=== PATIENT | male | born 1955 | race Hispanic/Latino ===

== ENCOUNTER 2018-05-12 06:19 | Day surgery (SDC) | payer OTHER, SELFPAY ==
[2018-04-23 12:50] VITALS: BMI 33.3
[2018-04-23 14:00] VITALS: BMI 33.3
[2018-05-12] VITALS (13 sets, daily range): BP systolic 92–153; BP diastolic 31–98; PULSE 40–76; RESP 15–18; TEMP 35.8–36.9; O2SAT 93–98; BMI 33.3
--- NOTE | 2018-05-12 06:00 | DI.RAD.S_ITS ---
PROCEDURE: XR KNEE RT 1TO2V INDICATIONS: prosthesis placement TECHNIQUE: 2 view(s) of the knee acquired. COMPARISON: None. FINDINGS: Bones: Patient is status post knee joint arthroplasty. Hardware components are in expected positions. Visualized bony structures are intact. Soft tissues: Overlying postoperative changes are noted. IMPRESSION: Post right total knee arthroplasty changes with anatomic right knee alignment. Dictated by: Adama Dee M.D. on 05/12/2018 at 11:36 Approved by: Adama Dee M.D. on 05/12/2018 at 11:37
[2018-05-12] MEDS: LACTATED RINGERS 1,000 ML 42 ML IV (07:10)
[2018-05-12] MEDS: PREGABALIN 75 MG CAPSULE PO (07:13)
[2018-05-12] MEDS: ACETAMINOPHEN 325 MG TABLET 975 MG PO ×3 (07:13→20:48)
[2018-05-12] MEDS: CELECOXIB 200 MG CAPSULE PO (07:14)
[2018-05-12] MEDS: MIDAZOLAM 2 MG/2 ML VIAL IV (07:43)
[2018-05-12] MEDS: fentaNYL 100 MCG/2 ML INJ 50 MCG IV (07:43)
--- NOTE | 2018-05-12 07:44 | PM.PREOP ---
Pre-operative Note Interval Note Pre-op Check: Yes History & Physical Reviewed by Physician and Yes Exam Performed Changes: No
[2018-05-12] MEDS: CEFAZOLIN VIAL 3 GM in SODIUM CHLORIDE 0.9% 100 ML 200 ML IV (08:00)
--- NOTE | 2018-05-12 08:41 | SUR.OPER ---
Supine on padded OR bed. Pillow under head, arms secured on padded armboards <90 degree abduction. Safety belt across torso. Non-operative leg secured with tape over blanket over lower leg. Operative leg secured in [place].
[2018-05-12] MEDS: BUPIVACAINE 0.25% W/ EPI VIAL 50 ML INJ (08:48)
[2018-05-12] MEDS: BUPIVACAINE LIPOSOME 266 MG/20 ML VIAL INJ (08:48)
[2018-05-12] MEDS: MORPHINE 4 MG/ML INJ INJ (08:51)
[2018-05-12] MEDS: TRANEXAMIC ACID 1,000 MG VIAL 1000 MG INJ ×2 (08:53→09:52)
--- NOTE | 2018-05-12 10:10 | PM.OP.1 ---
Operative Date/Time/Diagnoses Date of procedure: 05/12/18 Time of procedure: 10:10 Pre-op diagnosis: Right knee osteoarthritis Post-op diagnosis: same Procedure & Clinicians Surgeon: Jakub Gonzalez Director Case: Lilian Storey Click Yes if Unassisted: No Anesthesia Type: Spinal, Sedation, Peripheral nerve block and Local Operative Notes Findings: Severe medial and moderate patellofemoral osteoarthritis with relative preservation of the lateral compartment. Closure Type: primary Specimen(s): none sent Implants & Drains: Implants used in this procedure were manufactured by the [employer] and included the BCS II Journey total knee replacement with a size 9 right Oxinium femur, size 8 non porous right tibia, a 10 mm cross-linked polyethylene BCS II insert and a 35 mm aris II oval patella. Applied: implant(s) Estimated Blood Loss (mL): 50 Blood products transfused: none Tourniquet time (min): 59 Procedure in detail: The patient was seen in the pre-operative area, where the patient identified the right knee as the operative site and this was marked with my initials. The patient received pre-operative antibiotics, and was taken to the operating room and placed on the operative table in the supine position. After satisfactory anesthesia, a silver wrapper out was performed. The right leg was encircled with a tourniquet about the proximal thigh, and the leg was prepared from the toes to the tourniquet with ChloroPrep in the usual fashion and draped through sterile drapes. The leg was elevated and exsanguinated with Eschmark bandage and the tourniquet inflated to 250 mmHg pressure. The knee was approached through an approximately 18 cm incision centered over the patella and carried into the knee through a medial parapatellar arthrotomy. The anterior osteophytes and soft tissues were removed. The rotational landmarks of [place]'s line and the transepicondylar axis were marked on the femur with electrocautery, and intramedullary guide holes for the femur and tibia were created. The distal femoral cut was made in 6 degrees of valgus using the intramedullary guide at the primary cut setting. The size of the femur was measured. It was evident it would be a size 9, the largest size, and this requires an additional 2 mm cut which was performed. The proximal tibial cut was then made using the intramedullary guide, taking 9 mm of bone off the less involved side. The extension gap was checked and the rotation of the femoral component confirmed with the gap balancing system. The anterior, posterior and chamfer cuts were then made. The posterior osteophytes and soft tissues were then removed. The posterior capsule was injected with part of a mixture of 50 ml 0.25% Marcaine mixed with 20 ml Exparel and 4 mg of morphine for post-operative pain control. The remainder of this mixture was injected into the capsule and subcutaneous tissues during cement curing. The tibia was prepared with the rotation set by an extra medullary guide. Trial tibial and femoral components were then placed and the intercondylar notch cut through the femoral trial. Range of motion was 0-135 degrees, with good stability throughout the range. The patella was then cut to accommodate the patellar prosthetic. There was no need for a lateral release. The trials were then removed, and the femoral hole plugged with a bone plug. The bone was prepared with pulsatile lavage, and dried with a sponge. Cement was applied and the final prosthetics placed. Excess cement was removed during and after cement curing. After confirming there was no extruded cement posteriorly, the final tibial insert was placed. The knee was copiously irrigated and the tourniquet deflated. Hemostasis was obtained. The capsule was closed with interrupted # 2 polyester suture. The subcutaneous layer was closed with 3-0 Vicryl, and the skin with a running 3-0 V-Lock suture and SteriStrips. An Aquacel Ag dressing was applied and the patient was taken to recovery having tolerated the procedure well. Complications: none Condition: stable Disposition: PACU Plan for aftercare: The patient will be maintained on a standard total knee replacement protocol with weight bearing as tolerated. The patient will receive aspirin and sequential compression devices for DVT prophylaxis. The patient will be discharged home when safe for the home environment.
[2018-05-12] MEDS: OXYCODONE IR 10 MG TABLET PO (11:44)
[2018-05-12] MEDS: LACTATED RINGERS 1,000 ML 125 ML IV ×2 (11:45→20:45)
[2018-05-12] MEDS: HYDROMORPHONE 0.5 MG INJ IV (12:50)
--- NOTE | 2018-05-12 13:49 | PC.NURSE ---
Addendum entered by Faye Muro R.N. 05/12/18 14:46: pt up ambulated with PT c/o of feeling dizzy and lightheaded, sitting in chair b/p 92/34 p 40, after sitting for a few reports its getting better 113/78 p 44, is not sitting in chair at bedside. Original Note: day shift pt arrived to floor via bed from pacu @ 10:45, right knee has aqucel dressing with marky wrap, pt is able to wiggle toes and feel touch, denies pain at this time, is A&O able to communicate needs, oxygen 94-99% RA, 11:30- pt reporting pain increaseding to 5-6/10 and very uncomfortably 10mg oxycodone given, repositioned in bed and more ice packs applied. Pt continues to c/o pain HR in mid 40's waiting at this time to administer iv med Pt aware of plan to allow PO meds to kick in. 12:45 pt continues to c/o pain 7/10 clenching wrists and appears very uncomforable, apical HR 49, b/p 142/96. 0.5mg IV dilaudid given pt was able to fall asleep and rest. 1335- pt reports pain is 2/10 and tolerable at this time. Family at bedside.
[2018-05-12] MEDS: OXYCODONE IR 5 MG TABLET PO ×3 (16:16→22:51)
--- NOTE | 2018-05-12 16:26 | PT.IIE ---
Current Diagnoses Bilateral primary osteoarthritis of knee (05/12/18) Surgery Performed Operation Date: 05/12/18 07:45 Actual Procedures p Total Knee Arthroplasty(Right) - Jakub Gonzalez MD Surgical History (Last Updated 04/23/18 @ 14:33 by Carol Pete, RN) History of colon resection (Acute ~08/2008) History of colonoscopy with polypectomy (Acute ~10/2015) History of varicose vein ligation (Acute) Medical History (Last Updated 04/23/18 @ 14:33 by Carol Pete, RN) Bilateral primary osteoarthritis of knee (Acute) Bursitis of left hip (Acute ~2002) Closed head injury (Acute ~07/08/06) Constipation (Acute) Headache (Acute) Hyperlipidemia (Acute) Hypertension (Acute) Impaired glucose tolerance (Acute) Melanoma (Acute ~2005) Prostate cancer (Acute ~03/2017) Rotator cuff syndrome of right shoulder (Acute ~05/2007) Physical Therapy Inpatient Evaluation/Re-Eval M1 PT/OT-IP Prior Functional Status Start: 05/12/18 15:50 Freq: NEEDED Status: Active Protocol: Document 05/12/18 14:00 (Rec: 05/12/18 16:23 [id number]) Medical Review Prior Functional Status Medical History Reviewed Yes Diet/Fluid Consistency Regular Communication no deficits noted Mobility and Gait independent ambulator at home and community without AD Activities of Daily Living and IADL's independent ambulator at home and community without AD Prior Functional Level (Other details) pt walks 5-6 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 Social History Household Members spouse Living Arrangements House Number of Floors (Floors) One Floor Number of Stairs To Enter/Railing? 2 FRANCIS with handrails Home Environment Standard Height Toilet Walk in Shower Tub/Shower Employment Status Retired Additional Social History Comment Pt just retired last Saturday. 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 Pt has never used any assistive device but he had pre-op PT at [facility] and expects to go there for post op outpatient PT. Pt lives with his Chloe who is able to be his CG as needed . Pt's daughter Em is also able to be his CG as needed since she lives close by. M2 PT-IP Current Condition Start: 05/12/18 15:50 Freq: NEEDED Status: Active Protocol: Document 05/12/18 14:00 HH (Rec: 05/12/18 16:23 [id number]) Physical Therapy Current Condition Current Condition Evaluation Date 05/12/18 Treatment Diagnosis R TKA Onset Date 05/12/18 Weight Bearing Status Weight Bearing Status Weight Bear as Tolerated M3 PT-IP Subjective Start: 05/12/18 15:50 Freq: NEEDED Status: Active Protocol: Document 05/12/18 14:00 HH (Rec: 05/12/18 16:23 [id number]) Subjective Physical Therapy Visit Type Type Initial Evaluation Visit Start Time 14:00 Visit Stop Time 14:45 Total Visit Minutes 45 Notes Pt was seen with his Chloe and daughter Em at bedside. Number of STENOTYPIST Visits 0 Physical Therapy Visit Comments Patient Comments Pt reports his pain has gone down to 2/10 upon assessment compared to early this morning 8/10. I want to get out of bed now cause i feel pretty good. Patient Goals To be d/c to home and receive outpatient PT at [facility] to be able to amb to bathroom for toileting with mod I Therapy Pain Assessment Pain When Pain Assessed During Mobility Pain Present Pain Present Pain Reported Location Right Leg Intensity 3 Scale Used Numeric (1 - 10) Description Acute Pain Management Techniques Apply Cold M4 PT-IP Mobility and Gait Start: 05/12/18 15:50 Freq: NEEDED Status: Active Protocol: Document 05/12/18 14:00 HH (Rec: 05/12/18 16:23 [id number]) PT-Bed Mobility Assessment Supine to Sit Supine to Sit Standby Assistance Sit to Supine Sit to Supine Standby Assistance Scooting Scooting to Edge of Bed Standby Assistance Scooting Up and Down in Bed Standby Assistance PT-Transfer Assessment Sit to and From Stand Sit to and from Stand Standby Assistance Use of Upper Extremities Equipment Transfer Assistive Device Bed Rail Gait Belt Transfers Transfer Destination Bed Chair Transfer Technique Stand Step Pivot Transfer Ability Level of Assist Standby Assistance Comments Mobility Comments supine BP 146/96 HR 49 sitting BP 140/91 HR 46 post transfer BP 113/78 HR 44 Pt performs overall bed mobility with SBA with bedrails; sit to stand with FWW SBA; stand step pivot transfer with FWW SBA. Pt requires cues for hand placement on armrest and R LE placement on the floor from stand to sit. Pt demonstrates good understanding of proper transfer techniques without signs of LOB and acute distress possibly due to preop PT. Gait Assessment Gait Gait Assistance Required: Standby Assistance Distance (Feet) 16 Able to Maintain Weight Bearing Status Yes During Gait Assistive Devices Assistive Device Gait Belt Front Wheeled Walker Gait Deviations General Gait Pattern Decreased Stride Length Decreased Feet Clearance Step-to Gait Factors Limiting Gait Function Factors Limiting Gait Function Decreased Activity Tolerance Decreased Strength Limited Range of Motion Pain Comments Gait Comments Pt amb from bedside to bathroom door 4 feet x4 with FWW and CGA. Pt presents step to pattern due to pain. However, pt is able to increase his stride length and R foot clearance after 2 trials. Pt reports pain remains 3/10 during mobility and able to WBAT. PT-Balance Assessment Sitting Balance and Reactions Static Sitting Balance Ability Normal Dynamic Sitting Balance Ability Normal Standing Balance and Reactions Static Standing Balance Ability Good Dynamic Standing Balance Ability Fair M5 PT-IP Objective Assessments Start: 05/12/18 15:50 Freq: NEEDED Status: Active Protocol: Document 05/12/18 14:00 (Rec: 05/12/18 16:23 [id number]) Orientation Orientation/Cognition Level of Alertness Alert Orientation Name Age Birthday Month Date Year Day of Week Place Situation Language Function Ability No Deficits Noted Safety Awareness Understands Safety Issues Memory Description No Deficits Noted Gross Range of Motion Upper Extremity ROM Assessment Within Functional Limits Lower Extremity ROM Assessment Right Impaired Impairments AROM knee flexion 90 degrees AROM knee extension -3 degrees Strength Upper Extremity Strength Assessment Within Functional Limits Lower Extremity Strength Assessment Right Impaired Comments Strength Comments R knee flexion 3+/5 R knee ext 3+/5 gross L LE 5/5 Coordination Assessment Gross Coordination Gross Coordination WNL Sensation Assessment Sensation Gross Sensation WNL Right LE Impaired Light Touch Impaired Comments Sensation Comments Pt reports reduced sensitivity to light touch and pressure at surgical site compared to intact side M6 PT-IP Treatment Start: 05/12/18 15:50 Freq: NEEDED Status: Active Protocol: Document 05/12/18 14:00 HH (Rec: 05/12/18 16:23 [id number]) Physical Therapy Treatment Exercises Exercises Ankle Pumps Gluteal Sets Quad Sets Heel Slides Straight Leg Raises Short Arc Quads Education Education Provided Precautions Weight Bearing Status Post-Op Packet Safety Other Treatments Other Treatment Performed standing lateral weight shift EOB R knee flexion with towel seated short arc quad extension supine TKE M7 PT-IP Assessment and Plan Start: 05/12/18 15:50 Freq: NEEDED Status: Active Protocol: Document 05/12/18 14:00 HH (Rec: 05/12/18 16:23 HH [id number]) PT Summary Assessment and Plan Potential Rehabilitation Potential Excellent Status of Condition at Evaluation Stable Summary Impairments Pain ROM Strength Sensation Transfers Gait Activity Tolerance Assessment Summary Pt is a 63 yo pleasant male who received R TKA post op ( WBAT) day 1. Pt's pain is well addressed after pain medication and went down to 3/ 10 upon assessment. Pt presents difficulty in walking and transfer due to pain. Pt currently is able to perform R knee flexion AROM 90 degrees with -3 degrees for knee extension. Pt requires SBA and FWW for transfer and gait training x 16 feet along with cues for hand placements during stand to sit (one on chair armrest and one on FWW). Pt also c/o fatigue and lightheaded towards the end of tx session possibly due to OHTN and postop anaesthetic effect. However, pt does demonstrates good understanding of his condition and HEP due to his preop PT sessions at [facility]. Pt has excellent rehab potential to reach PLOF. Recommend d/c to home with assistance (from CG) with outpatient PT for cont ROM and strengthening rehab. Goals Bed Mobility Goal Independent Transfer Goal Independent Gait Goal Independent Gait Distance 100 Other Goals 5 steps with handrails SBA. Days to Meet Goals 3 Frequency of Treatment Frequency Of Treatment Twice a Day Treatment Plan Physical Therapy Treatment Plan Bed Mobility Training Transfer Training Gait Training Therapeutic Exercise Balance Retraining Post Op Education Discharge Planning Hot or Cold Pack Neuromuscular Re-ed Recommendations To Nursing Amount of Assist Needed Standby Assistance 1 Person Assist Discharge Recommendations PT Discharge Recommendations Home Home with Assistance Outpatient PT Equipment Needed for Home Before FWW/ SPC Discharge
[2018-05-12] MEDS: CEFAZOLIN 2 GM/100 ML FROZ.PIGGY IV ×2 (16:45→23:40)
[2018-05-12] MEDS: hydrOXYzine pamoate 25 MG CAPSULE PO (20:45)
[2018-05-12] MEDS: DOCUSATE 100 MG CAPSULE PO (20:47)
[2018-05-12] MEDS: LOVASTATIN 20 MG TABLET 40 MG PO (20:47)
[2018-05-12] MEDS: ASPIRIN EC 81 MG TABLET PO (20:48)
[2018-05-13] MEDS: OXYCODONE IR 5 MG TABLET PO ×2 (01:47→05:18)
[2018-05-13 05:19] VITALS: BP 127/77; PULSE 62; RESP 14; TEMP 36.6; O2SAT 94
[2018-05-13 05:35] LABS: Hematocrit 34.6 % (41-53); Hemoglobin 12.1 g/dL (13.5-17.5)
[2018-05-13] MEDS: SODIUM CHLORIDE 0.9% FLUSH 10 ML IV (05:57)
[2018-05-13 08:03] VITALS: BP 121/95; PULSE 73; RESP 18; TEMP 36.8; O2SAT 95
[2018-05-13] MEDS: ACETAMINOPHEN 325 MG TABLET 975 MG PO (08:18)
[2018-05-13] MEDS: DOCUSATE 100 MG CAPSULE PO (08:19)
[2018-05-13] MEDS: ASPIRIN EC 81 MG TABLET PO (08:19)
[2018-05-13] MEDS: IBUPROFEN 600 MG TABLET PO (08:19)
[2018-05-13] MEDS: AMLODIPINE 5 MG TABLET PO (08:19)
[2018-05-13] MEDS: OXYCODONE IR 10 MG TABLET PO ×2 (08:22→11:33)
--- NOTE | 2018-05-13 09:17 | PM.DS.1 ---
History of Present Illness Chief complaint: [id number] Discharge Providers Primary care physician: Ralph Johnson MD Consults: 05/12/18 11:19 Consult to Discharge Planning Routine Comment: Consult to Physical Therapy Evaluate & Treat Comment: Physician Instructions: postop TKA protocol Discharge provider: Morenita Chris MD Discharge Date: 05/13/18 Summary Discharge Diagnosis: Right knee arthritis Hospital Course: Patient was admitted to the floor postoperatively. Patient tolerated an oral diet and transition from IV to oral pain medication. Patient was up and ambulatory with physical therapy and determine appropriate for discharge. On postoperative day 1 the hemoglobin was stable. Status at Discharge Cognitive/behavioral status at discharge: Baseline Functional status at discharge: uses cane/walker Overall status at discharge: patient is progressing back to baseline Time Spent with Patient Less than 30 minutes Exam Vital Signs (past 8 hours): - 05/13/18 05:19 05/13/18 08:03 Temperature 97.9 F 98.2 F Pulse Rate 62 73 Respiratory Rate 14 18 Blood Pressure 127/77 121/95 H Pulse Oximetry 94 95 Oxygen Delivery Method Room Air Oxygen Flow Rate 0 Narrative Exam Narrative: Patient is alert and oriented male in no acute distress. Rest exam unlabored on room air CV: Regular rate and Abdomen: Nontender Musculoskeletal: Right lower extremity with Aquacel dressing in place. Moderate swelling consistent with postoperative status. Minimal drainage on dressing. Patient is able to actively demonstrate dorsiflexion plantar flexion. Soft calf. Negative Tiffany. Dorsalis pedis pulse palpable. Sensation grossly intact to light touch superficial peroneal deep peroneal sural and saphenous nerve distributions Objective Labs Result Diagrams: 05/13/18 05:09 Labs: Laboratory Results - last 24 hr 05/13/18 05:09 Hgb 12.1 L Hct 34.6 L Discharge Plan Discharge Plan Patient Disposition: Home Discharge comment: Appropriate for discharge. Weight bear as tolerated right lower extremity. Aspirin 81 mg b.i.d. for DVT prophylaxis. Patient is with past patient with pain medications at home. Patient will follow up with physical therapy and SNO as scheduled Discharge Med Rec/Prescriptions Prescriptions: New acetaminophen 325 mg Tablet 975 mg PO TID 10 Days Qty: 90 RF: 0 aspirin 81 mg Tablet,Delayed Release (Dr/Ec) 81 mg PO BID 30 Days Qty: 60 RF: 0 docusate sodium 100 mg Capsule 100 mg PO BID 15 Days Qty: 30 RF: 0 ondansetron 4 mg Tablet,Disintegrating 4 mg PO Q4HR PRN (Reason: Nausea) Qty: 7 RF: 1 Continue lovastatin 40 mg Tablet 40 mg PO BEDTIME RF: 0 amlodipine 5 mg Tablet 5 mg PO DAILY RF: 0 Discontinued aspirin 81 mg Tablet,Delayed Release (Dr/Ec) 81 mg PO DAILY RF: 0 Follow up/Referrals: Jakub Gonzalez MD [Physician] - (as scheduled SNO postop) Discharge Orders: Discharge (Order); Ordered 05/13/18 Ordered By: Morenita Chris Provider Discharge Instructions Diet: Diet as Tolerated Activity: WBAT Cold/Heat Therapy: ice Other treatments: lee path patient with meds Rx at home Skin/Wound/Dressing Care Report to your healthcare provider any signs of infection, such as:: chills, fever, night sweats, increased pain, unusual drainage and unusual redness Dressing: keep aqua cell dressing intact Visit Report/Discharge Packet Stand Alone Forms: Surgery Discharge Discharge Data Primary Care Provider: Ralph Johnson Attending Provider: Jakub Gonzalez Quality VTE Deep Vein Thrombosis/Pulmonary Embolism Present on Admission: No
--- NOTE | 2018-05-13 11:34 | PT.IPTN ---
Current Diagnoses Bilateral primary osteoarthritis of knee (05/12/18) Surgery Performed Operation Date: 05/12/18 07:45 Actual Procedures p Total Knee Arthroplasty(Right) - Jakub Gonzalez MD Physical Therapy Treatment Note M2 PT-IP Current Condition Start: 05/12/18 15:50 Freq: NEEDED Status: Active Protocol: Document 05/12/18 14:00 HH (Rec: 05/12/18 16:23 HH [id number]) Physical Therapy Current Condition Current Condition Evaluation Date 05/12/18 Treatment Diagnosis R TKA Onset Date 05/12/18 Weight Bearing Status Weight Bearing Status Weight Bear as Tolerated M3 PT-IP Subjective Start: 05/12/18 15:50 Freq: NEEDED Status: Active Protocol: Document 05/13/18 11:24 SA (Rec: 05/13/18 11:34 SA [id number]) Subjective Physical Therapy Visit Type Type Treatment Note Visit Start Time 10:27 Visit Stop Time 10:54 Total Visit Minutes 27 Notes Pt up in chair, present for PT. Plan to d/c this morning. Physical Therapy Visit Comments Patient Comments Pt rates pain as pretty minimal about a 2/10 on pain scale. Patient Goals To d/c home with . Therapy Pain Assessment Pain When Pain Assessed During Mobility Pain Present Pain Present Pain Reported Location Right Leg Intensity 2 Scale Used Numeric (1 - 10) Pain Management Techniques Apply Cold Timing of Activity with Medications M4 PT-IP Mobility and Gait Start: 05/12/18 15:50 Freq: NEEDED Status: Active Protocol: Document 05/13/18 11:24 SA (Rec: 05/13/18 11:34 SA [id number]) PT-Bed Mobility Assessment Supine to Sit Supine to Sit Standby Assistance Sit to Supine Sit to Supine Standby Assistance Scooting Scooting to Edge of Bed Standby Assistance Scooting Up and Down in Bed Standby Assistance PT-Transfer Assessment Sit to and From Stand Sit to and from Stand Standby Assistance Use of Upper Extremities Equipment Transfer Assistive Device Gait Belt Front Wheeled Walker Orthotic/Prosthetic Devices or Brace: No Transfers Transfer Destination Bed Chair Transfer Technique Stand Step Pivot Transfer Ability Level of Assist Standby Assistance Comments Mobility Comments Reviewed use of dog leash or other leg for lifting RLE over EOB. Pt SBA for stand pivot txs and bed mobility, SBA-CGA for ambualtion. Demonstrates good standing balance and safe use of FWW. Gait Assessment Gait Gait Assistance Required: Standby Assistance Distance (Feet) 85 Able to Maintain Weight Bearing Status Yes During Gait Assistive Devices Assistive Device Gait Belt Front Wheeled Walker Gait Deviations General Gait Pattern Decreased Stride Length Decreased Feet Clearance Step-to Gait Factors Limiting Gait Function Factors Limiting Gait Function Decreased Activity Tolerance Decreased Strength Limited Range of Motion Pain Comments Gait Comments Gait training in room and halls with FWW and SBA-CGA. Cues for increased WBing through RLE and decreased WBing through UEs and FWW. Stair Climbing Assessment Evaluation Level of Assist On Stairs Contact Guard Assistance Devices Stair Climbing Assistive Devices Front Wheel Walker Technique/Endurance Stair Climbing Direction Ascend and Descend Stair Climbing Technique Step to Step Number of Steps Climbed 1 Query Text: Stair Climbing Set # Repetitions (reps) 3 Comments Stair Climbing Comments Used single step with FWW and CGA as pt has no rail at home and 2 steps and will use FWW to get in/out of house. M5 PT-IP Objective Assessments Start: 05/12/18 15:50 Freq: NEEDED Status: Active Protocol: Document 05/12/18 14:00 (Rec: 05/12/18 16:23 [id number]) Orientation Orientation/Cognition Level of Alertness Alert Orientation Name Age Birthday Month Date Year Day of Week Place Situation Language Function Ability No Deficits Noted Safety Awareness Understands Safety Issues Memory Description No Deficits Noted Gross Range of Motion Upper Extremity ROM Assessment Within Functional Limits Lower Extremity ROM Assessment Right Impaired Impairments AROM knee flexion 90 degrees AROM knee extension -3 degrees Strength Upper Extremity Strength Assessment Within Functional Limits Lower Extremity Strength Assessment Right Impaired Comments Strength Comments R knee flexion 3+/5 R knee ext 3+/5 gross L LE 5/5 Coordination Assessment Gross Coordination Gross Coordination WNL Sensation Assessment Sensation Gross Sensation WNL Right LE Impaired Light Touch Impaired Comments Sensation Comments Pt reports reduced sensitivity to light touch and pressure at surgical site compared to intact side M6 PT-IP Treatment Start: 05/12/18 15:50 Freq: NEEDED Status: Active Protocol: Document 05/13/18 11:24 SA (Rec: 05/13/18 11:34 SA [id number]) Physical Therapy Treatment Exercises Exercises Ankle Pumps Gluteal Sets Quad Sets Heel Slides Straight Leg Raises Short Arc Quads Education Education Provided Precautions Weight Bearing Status Post-Op Packet Safety Other Treatments Other Treatment Performed Discussed equipment needs in home. Pt has SPC, FWW, higher toilet seats and grab bar in bathroom. M7 PT-IP Assessment and Plan Start: 05/12/18 15:50 Freq: NEEDED Status: Active Protocol: Document 05/13/18 11:24 SA (Rec: 05/13/18 11:34 SA [id number]) PT Summary Assessment and Plan Summary Assessment Summary Pt to d/c home today with as caregiver and OP TP starting on Saturday. Pt demonstrated ability to manage 3 steps up/down and safe gait with FWW. Understands HEP and importance of frequent movement/activity. Recommendations To Nursing Amount of Assist Needed Standby Assistance 1 Person Assist Discharge Recommendations PT Discharge Recommendations Home Home with Assistance Outpatient PT Equipment Needed for Home Before Pt has FWW and SPC. Discharge
--- NOTE | 2018-05-13 13:57 | PC.NURSE ---
Discharge: Received final instructions from PT. here this am and removed marky wrap. Wound care instructions given. Pt is following his total knee precautions and using a walker correctly. Both he and spouse feel he is ready to go home. Pain med dose increased to 10mg of oxycodone and he felt this was much better for pain control. Denies any concerns at time of d/c home. Pt d/c home via auto with .
== END 2018-05-13 11:45 | disposition home or self-care (01) ==
LOC: OR 11:08 → AC 11:08
PROVIDERS: PCP Family Medicine; Visit Provider Orthopaedic Surgery
PROC: 0SRC0JZ Replacement of Right Knee Joint with Synthetic Substitute, Open Approach (ICD-10-PCS; CPT 27447; principal; 2018-05-12 07:45)
DX: M17.11 Unilateral primary osteoarthritis, right knee (principal); G89.18 Other acute postprocedural pain; I10 Essential (primary) hypertension; E66.9 Obesity, unspecified; Z87.891 Personal history of nicotine dependence; Z68.33 Body mass index [BMI] 33.0-33.9, adult; E78.5 Hyperlipidemia, unspecified
CPT/HCPCS: 27447; 36415; 64447; 73560; 85014; 85018; 97116; 97161; 97530; C1776; C9290; J0690; J1170; J2250; J2270; J2704; J3010

== ENCOUNTER → 2024-05-21 08:49 | Outpatient (CLI) | payer OTHER, SELFPAY ==
[2021-05-24 10:08] VITALS: BMI 33.3
--- NOTE | 2024-05-21 08:51 | DI.CT.S_ITS ---
PROCEDURE: CT IVP A/P W/WO INDICATIONS: gross hematuria TECHNIQUE: Optional 5 mm thick noncontrast images acquired from the diaphragm to the symphysis pubis. After the administration of intravenous contrast, 5 mm thick images acquired from the diaphragm to the symphysis pubis after a 10-minute delay. 2 mm thick coronal and sagittal reformats were then performed of the kidneys and ureters. For radiation dose reduction, the following was used: automated exposure control, adjustment of mA and/or kV according to patient size. COMPARISON: None. FINDINGS: Image quality: Diagnostic. Kidneys and Ureters: Both kidneys are normal in size, without hydronephrosis or nephrolithiasis. There are several simple renal cortical cysts. No perinephric fat stranding. There is normal bilateral renal enhancement. Renal calyces appear normal in morphology when filled with contrast. Opacified portions of both ureters demonstrate normal caliber Bladder: Bladder wall thickness is normal. No calcified bladder stones. OTHER: Lower chest: Unremarkable. Liver: No solid mass. Gallbladder: No radiopaque gallstones or wall thickening. Biliary ducts: No biliary dilation. Pancreas: No ductal dilation. Spleen: Size is within normal limits. Single 1.5 cm rounded presumed splenule inferior tip of the spleen area. Adrenal Glands: No adrenal nodules. Stomach and Bowel: Normal colonic caliber, without significant wall thickening. Peritoneum: No abnormal intraperitoneal fluid. No free air. Ventral Wall: No hernia. Abdominal Nodes: No retroperitoneal or mesenteric adenopathy by size criteria. Vessels: Aorta and inferior vena cava are normal in size. PELVIS: Pelvic Organs: Unremarkable. Pelvic Nodes: No enlarged lymph nodes. Miscellaneous: No inguinal hernias are seen. Bones: No aggressive osseous abnormality. IMPRESSION: No nephrolithiasis or filling defects within the opacified renal collecting system or ureters. No osteolytic or blastic bone lesions are found. No pelvic adenopathy is seen. Incidental note is made of a rounded 1.5 cm presumed splenule at the inferior tip of the spleen. Dictated by: Luis Fierro M.D. on 05/23/2024 at 7:45 Approved by: Luis Fierro M.D. on 05/23/2024 at 7:47
[2024-05-21 09:19] LABS: Estimated Glomerular Filt Rate > 60 mL/min (>60)
== END ==
PROVIDERS: Radiology Diagnostic Radiology; PCP Family Medicine; Referring Provider Urology; Visit Provider Urology
DX: R31.0 Gross hematuria (principal); N28.1 Cyst of kidney, acquired
CPT/HCPCS: 36415; 74178; 82565; Q9967